=== PATIENT | male | born 1955 | race Caucasian/White ===

== ENCOUNTER 2019-11-22 11:14 | Emergency (ER) | payer BC ==
[~2019-11-22] VITALS: Ht 188 cm; Wt 111.4 kg
[~2019-11-22 11:14] MED LIST: AMLO5TAB PO; PANT-47 PO; SIMV5TAB58 PO; VENL-191 PO
--- NOTE | 2019-11-22 12:34 | NUR ---
Patient is resting comfortably in bed. He is updated on POC.
[2019-11-22] MEDS ORDERED: ketorolac trometh. 30mg/ml inj. IM ONE (13:00)
[2019-11-22 13:59] VITALS: BP 134/71
== END 2019-11-22 14:00 | disposition home or self-care (01) ==
LOC: ER 11:14
DX: M25.551 Pain in right hip (principal); M54.5 Low back pain; R20.0 Anesthesia of skin; E78.00 Pure hypercholesterolemia, unspecified; I10 Essential (primary) hypertension; G89.29 Other chronic pain; F41.9 Anxiety disorder, unspecified; Z72.89 Other problems related to lifestyle; Z79.899 Other long term (current) drug therapy
CPT/HCPCS: 72100; 73502; 96372; 99284; J1885

== ENCOUNTER 2025-02-15 13:22 | Emergency (ER) | payer MEDICARE, BC ==
[~2025-02-15] VITALS: Ht 188 cm; Wt 102.8 kg
[2025-02-15 13:40] VITALS: TEMP 97.8
[2025-02-15 14:33] LABS: MEAN PLATELET VOLUME 8.4 FL (7.4-10.4); RED CELL DISTRIBUTION WIDTH 15.1 % (11.5-14.5)
--- NOTE | 2025-02-15 14:34 | Physician Documentation ---
History of Present Illness ~ Chief Complaint: Mechanical Fall Stated Complaint: FELL 3 DAYS AGO AND HIT HEAD Time Seen by MD: 14:01 Primary Medical Doctor: Mayur Gonzalez Source: patient Mode of Arrival: POV, Dropped Off Exam Limitations: no limitations HPI Chief Complaint: Lightheadedness, dizziness Caveat: None Independent Historians: None History of Present Illness: Patient is a 69-year-old man who had a fall one week ago at home when changing the scarlet litter box. He stood up got lightheaded and dizzy fell striking the back of his head. No loss of consc iousness. No nausea or vomiting. Since then he has been feeling the inability to focus and feels like he is in a fog. Patient has also noticed dizziness when standing. Patient noticed significant lightheadedness and dizziness when awaking in the morning and getting out of bed. When he fell and hit his head last Friday he did not lose any consciousness. He has had no nausea or vomiting. No chest pain, no shortness a breath. No abdominal pain. He has not had any vomiting or diarrhea. Patient isn't on any anticoagulants. Review of systems: All systems were reviewed and are negative except for what is indicated in the history of present illness. Past Medical History: HTN, HLD, anxiety, chronic pain Past Surgical History: Orthopedic Social History: No tobacco use, no alcohol use, no drug use Medications: Reviewed as documented Nursing Notes Allergies: Reviewed as documented in Nursing Notes Tetanus within 5 Years?: Yes Medication Reconciliation Allergies: Coded Allergies: No Known Allergies (Unverified , 05/04/14) Scheduled Amlodipine Besylate (Amlodipine Besylate), 2 TABLET PO HS, (Reported) Pantoprazole Sodium (PROTONIX tablet), 40 MG PO BID Simvastatin* (Zocor*), 2 TAB PO DAILY, (Reported) Venlafaxine Hcl* (Effexor*), 2 TABLET PO QAM, (Reported) Past Medical History Past Medical History: High Cholesterol, Hypertension, Chronic Pain, Anxiety Past Surgical History: noncontributory Alcohol Use: Occasionally Lives In: Home Review of Systems All Other Systems at this time: Reviewed and Negative ROS Patient denies any other acute symptoms other than above. All other systems are negative Physical Exam Vital Signs: RN Vital Signs have been reviewed: Yes, Temperature: 97.8, Source: Temporal, Heart Rate: 65, Respiratory Rate: 18, BP: 149/82, Pulse Oximetry: 93, Weight: 102.750 Pulse Oximetry Reflects: adequate oxygenation Physical Exam General Appearance: No distress HEENT: Normal OP, moist oral mucosa, PERRL, EOMI, head and face appear atraum atic Neck: supple, normal ROM, trachea midline Pulmonary: No respiratory distress, CTA, BS equal Cardiac: RRR, no murmur, rub or gallop, GI: nondistended, soft, nontender, normal bowel sounds, no guarding, no rebound Extremities: normal ROM, no swelling, non-tender Skin: intact, dry, warm, no rashes Neuro: AAOx3, speech is clear, no focal motor weakness Psych: normal affect, good eye contact, no apparent hallucination, normal speech Progress Results/Orders Results/Orders Orders - BRI KHANNA MD Monitor (02/15/25 14:27) Saline Lock (02/15/25 14:27) Nothing By Mouth (02/15/25 Dinner) Ct Head (02/15/25 15:40) Orthostatic Vs (02/15/25 16:51) Completed Orders - BRI KHANNA MD Cbc/Diff (02/15/25 14:27) Lipase (02/15/25 14:27) Normal Saline 1000ml (0.9% Sodium Chlori (02/15/25 14:30) BMP (02/15/25 14:27) Ct Head (02/15/25 15:40) Ua W/Microscopic, Cult If Ind (02/15/25 14:58) Medications Received in ER Medications (Trade) Dose Ordered Sig/Alexa Route PRN Reason Start Time Stop Time Status Last Admin Dose Admin (0.9% sodium chloride (NS) 1000ml IV soln) 1,000 ml ONCE ONCE IVB 02/15/25 14:30 02/15/25 14:31 DC 02/15/25 15:02 1,000 ML Vital Signs 02/15/25 02/15/25 02/15/25 02/15/25 13:40 13:56 14:17 14:59 Temp 97.8 Pulse 68 66 59 73 79 65 Resp 18 14 B/P (MAP) 151/77 146/67 140/77 (98) 143/85 111/67 149/82 Pulse Ox 93 93 O2 Flow Rate 0 02/15/25 16:54 Pulse 63 67 70 B/P (MAP) 147/81 150/80 137/79 Laboratory Tests Test 02/15/25 14:16 02/15/25 14:58 White Blood Count 8.2 Red Blood Count 4.27 L Hemoglobin 15.4 Hematocrit 44.3 Mean Corpuscular Volume 103.7 H Mean Corpuscular Hemoglobin 36.0 H Mean Corpuscular Hemoglobin Concent 34.7 Red Cell Distribution Width 15.1 H Platelet Count 283 Mean Platelet Volume 8.4 Neutrophils (%) (Auto) 79.3 H Lymphocytes (%) (Auto) 10.9 L Monocytes (%) (Auto) 8.1 Eosinophils (%) (Auto) 0.9 Basophils (%) (Auto) 0.8 Neutrophils # (Auto) 6.5 Lymphocytes # (Auto) 0.9 L Monocytes # (Auto) 0.7 Eosinophils # (Auto) 0.1 Basophils # (Auto) 0.1 CBC Comment Sodium Level 140 Potassium Level 3.2 L Chloride Level 104 Carbon Dioxide Level 28.3 Anion Gap 8 Blood Urea Nitrogen 11 Creatinine 0.72 Estimated GFR/1.73 m2 > 90 BUN/Creatinine Ratio 15.3 Glucose Level 118 H Calcium Level 9.1 Albumin 3.5 Lipase 21 Chemistry Comments Urine Specimen Description Urinal Urine Color Dark yellow Urine Clarity Clear Urine pH 6.0 Urine Specific Roann 1.020 Urine Protein Trace Urine Glucose (UA) Negative Urine Ketones 15 H Urine Occult Blood Negative Urine Nitrite Negative Urine Bilirubin Moderate Urine Urobilinogen 4.0 H Urine Leukocyte Esterase Negative Urine RBC 0-2 Urine WBC 0-4 Urine Squamous Epithelial Cells Few Urine Bacteria Few Urine Fine Granular Casts 0-3 Urine Mucus Moderate Urine Culture Indicated Not ind Volume Urine Centrifuged 5 ml Urine Comment Low volume Medical Decision Making Findings Differential diagnosis includes but is not limited to: DEHYDRATION, ORTHOSTATIC HYPOTENSION, INFECTION, ELECTROLYTE ABNORMALITIES, TRAUMATIC BRAIN INJURY, MINOR CLOSED HEAD INJURY Head CT without IV contrast, indication: Head trauma Impression: NO ACUTE INTRACRANIAL PROCESS Laboratory data independent interpretation: CBC: Unremarkable CMP: Unremarkable, mild hypokalemia with a potassium of 3.2 Urinalysis: Unremarkable Emergency department course/medical decision-making: Patient is a 69-year-old man who had a closed head injury last Friday. Since then the patient has noticed some difficulty focusing. He has also had dizziness that he describes as lightheadedness but is primarily when standing from a seated position or getting out of bed in the morning. Patient is found to be orthostatic. Patient is given 1 L of normal saline. Patient's orthostasis has resolved. Patient is neurologically intact. No other neurological symptoms. No evidence radiographically for traumatic brain injury. Patient is in sinus rhythm on the monitor. He is hemodynamically stable. Test results and all the above discussed with the patient. Patient will be discharged home. Departure Time of Disposition: 17:08 Disposition: 01 HOME / SELF CARE / HOMELESS Impression: Primary Impression: Orthostatic hypotension Additional Impression: Closed head injury Qualified Codes: S09.90XA - Unspecified injury of head, initial encounter Discharge Instructions: Head Injury, Adult, [id number], Orthostatic Hypotension Additional Instructions: RECOMMEND YOU FOLLOW UP WITH YOUR PRIMARY CARE DOCTOR RETURN IF SYMPTOMS WORSEN OR RECUR Referrals: NO PRIMARY CARE PROVIDER (PCP) Education Educated: Patient Educated regarding: diagnosis, treatment, need for follow up Signature Scribe Signature: No scribe Attestation: No scribe BRI KHANNA MD Feb 15, 2025 14:34
[2025-02-15 14:38] LABS: CREATININE 0.72 MG/DL (0.60-1.10); TOTAL CARBON DIOXIDE 28.3 MMOL/L (24-32); eCRCL 113 ML/MIN; eGFR > 90 ML/MIN
[2025-02-15] MEDS: normal saline 1000ML IV soln IVB ONE (15:02)
[2025-02-15 15:34] LABS: LEUKOCYTE ESTERASE ,URINE NEGATIVE (Neg); NITRITES, URINE NEGATIVE (Neg); OCCULT BLOOD,URINE NEGATIVE (Neg)
[2025-02-15 15:43] LABS: UA COLLECTION TYPE URINAL
[2025-02-15 15:45] LABS: FINE GRANULAR CAST 0-3 /LPF (NEGATIVE); MUCUS STRANDS MODERATE /LPF (Neg); SQUAMOUS EPITHELIAL CELL,UR FEW /LPF (FEW)
--- NOTE | 2025-02-15 16:06 | RADIOLOGY REPORT ---
EXAM: CT CT HEAD INDICATION: head trauma TECHNIQUE: CT of the head without intravenous contrast. Radiation Dose : 1. Head: CT Dose: CTDI volume is 69 mGy. Dose-length product is 1191 mGy*cm The dose indicators for CT are the volume Computed Tomography (CT) Dose Index (CTDIvol) and the Dose Length Product (DLP), and are measured in units of mGy and mGy-cm, respectively. These indicators are not patient dose, but values generated from the CT scanner acquisition factors. The report includes radiation exposure data for exposures received during this examination. COMPARISON: None FINDINGS: There is no evidence of acute intracranial hemorrhage, extra-axial collection, mass effect, midline s hift, herniation or hydrocephalus. The ventricles, sulci and cisterns are age appropriate. The knapp-white differentiation is intact. The visualized paranasal sinuses and mastoid air cells are clear. The surrounding soft tissues and osseous structures are unremarkable. IMPRESSION: No acute intracranial abnormality. Radiation optimization: All CT scans at this facility use at least one of these dose optimization stephen hniques: automated exposure control mA and/or kV adjustment per patient size (includes targeted exam s where dose is matched to clinical indication) or iterative reconstruction.
[2025-02-15 17:20] VITALS: BP 145/78; PULSE 65; RESP 18; O2SAT 95
== END 2025-02-15 17:25 | disposition home or self-care (01) ==
LOC: ER 13:22
DX: S09.90XA Unspecified injury of head, initial encounter (principal); I95.1 Orthostatic hypotension; E78.00 Pure hypercholesterolemia, unspecified; I10 Essential (primary) hypertension; W19.XXXA Unspecified fall, initial encounter; Y93.89 Activity, other specified; Y92.89 Other specified places as the place of occurrence of the external cause; Y99.8 Other external cause status
CPT/HCPCS: 36415; 70450; 80048; 81001; 83690; 85025; 96360; 99285; J7030